=== PATIENT | male | born 1960 | race African-American/Black ===

== ENCOUNTER 2019-04-24 19:46 | Emergency (ER) | payer OTHER ==
[2019-04-24 19:50] VITALS: BP 138/74; PULSE 70; TEMP 97.4; BMI 28.5
[2019-04-24] MEDS ORDERED: NAPROXEN 500 MG TABLET (FP) PO ONE (20:16)
[2019-04-24] MEDS ORDERED: METHOCARBAMOL 500 MG TABLET PO ONE (20:16)
[2019-04-24] MEDS ORDERED: diazePAM 5 MG TABLET PO ONE (20:19)
[2019-04-24] MEDS ORDERED: diazePAM 5 MG TABLET ONE (20:21)
[2019-04-24] MEDS ORDERED: NAPROXEN 500 MG TABLET (FP) ONE (20:21)
--- NOTE | 2019-04-24 20:25 | PDOC ---
History of Present Illness - General Chief Complaint: Back Pain Stated Complaint: LOWER BACK PAIN Time Seen by Provider: 04/24/19 19:54 History Source: Patient Exam Limitations: No Limitations - History of Present Illness Initial Comments: 04/24/19 20:21 CHIEF COMPLAINT: Lower back pain HISTORY OF PRESENT ILLNESS: This 59-year-old male denies medical history presents emergency department for evaluation of lower back pain for 3 days which she sustained while performing leg lift exercises. Patient reports the pain is nonradiating or any sensory deficits. Patient denies incontinence of bladder or bowel, urinary retention, saddle anesthesia, footdrop, history of IV drug use or cancer. REVIEW OF SYSTEMS: GENERAL: Afebrile, denies any weakness RESPIRATORY: No cough, wheezing, or hemoptysis. CARDIAC: No chest pain or shortness of breath MUSCULOSKELETAL: Pain to generalized lower back. No point tenderness. Pain worse on left than right. SKIN : No erythema, no bruising, no deformity. GI/: Denies any abdominal pain, no urinary difficulty, incontinence or urinary retention. RECTAL: Denies any difficulty this A.m. NEUROLOGICAL: Denies any numbness or tingling. No neurosensory deficits. PHYSICAL EXAM: GENERAL: The patient is awake, alert, and fully oriented, in no acute distress. RESPIRATORY: Lungs clear bilaterally, no rhonchi wheezes or crackles CARDIAC: S1-S2 audible, no murmur rub or gallop MUSCULOSKELETAL: Pain to generalized lower back, nonradiating, no tingling or sensory deficit. Less than 2 second cap refill, +2 pedal pulses. No spinal point tenderness. Normal reflexive and no deficits to sensation or strength. Palpable muscle spasm in the left lumbar paraspinous region. GI/: Abdomen soft, nontender, nondistended. No rebound tenderness. No masses palpable. RECTAL: [Deferred patient with no neurological findings] [Normal Rectal Tone]. [ Guaiac negative] SKIN: Warm, Dry, normal turgor, no erythema, no edema no bruising. Past History - Past Medical History Allergies/Adverse Reactions: Allergies Allergy/AdvReac Type Severity Reaction Status Date / Time doxycycline AdvReac Verified 04/24/19 19:51 Penicillins AdvReac Verified 04/24/19 19:51 Home Medications: Ambulatory Orders Methocarbamol [Robaxin -] 1,500 mg PO Q8H #30 tablet 04/24/19 Naproxen Sodium [Naproxen Sodium ER] 500 mg PO BID PRN #10 tablet.er 04/24/19 Asthma: Yes COPD: No Other medical history: denies - Immunization History Immunization Up to Date: Yes - Suicide/Smoking/Psychosocial Hx Smoking History: Former smoker Have you smoked in the past 12 months: No Information on smoking cessation initiated: No Hx Alcohol Use: No Drug/Substance Use Hx: No *Physical Exam - Vital Signs Last Vital Signs Temp Pulse Resp BP Pulse Ox 97.4 F L 70 20 138/74 98 04/24/19 19:48 04/24/19 19:48 04/24/19 19:48 04/24/19 19:48 04/24/19 19:48 Medical Decision Making - Medical Decision Making 04/24/19 20:21 A/P: 59-year-old male with back pain for 3 days Palpable muscle spasm in the left lumbar paraspinous region No sensory deficits noted Naprosyn 500 mg orally now Valium 5 mg orally now Discharge home with prescription for Robaxin *DC/Admit/Observation/Transfer Diagnosis at time of Disposition: Muscle spasm of back - Discharge Dispostion Disposition: HOME Condition at time of disposition: Fair Decision to Admit order: No - Prescriptions Prescriptions: Methocarbamol [Robaxin -] 1,500 mg PO Q8H #30 tablet Naproxen Sodium [Naproxen Sodium ER] 500 mg PO BID PRN #10 tablet.er PRN Reason: Back Pain - Referrals Referrals: Ramírez Bazzi MD [Primary Care Provider] - - Patient Instructions Additional Instructions: Enjoy Jessica. Rest, no heavy lifting or exercise until pain is resolved Hot soaks to neck and low back as often as possible/hot showers or Jacuzzis No massage or therapy until spasm is gone Continue naproxen 500mg tablets every 12 hours for the next 3 days then as needed for pain and swelling Robaxin 1500mg every 8 hours as needed for spasm If not significant improvement within 24 hours with medication and rest regime, followup with private physician for change in medications and /or therapy. - Post Discharge Activity
== END 2019-04-24 20:27 | disposition home or self-care (01) ==
LOC: JERFT 19:46
DX: M62.830 Muscle spasm of back (principal)
CPT/HCPCS: 99281-25